=== PATIENT | male | born 1990 | race African-American/Black ===

== ENCOUNTER 2025-05-07 09:43 | Emergency (ER) | payer OTHER, SELFPAY ==
[2025-05-07 09:45] VITALS: BP 132/78; PULSE 102; RESP 20; TEMP 36.6; O2SAT 95; BMI 36.3
--- NOTE | 2025-05-07 09:53 | PC.NURSE ---
called the clinic but no answer at this time
--- NOTE | 2025-05-07 10:58 | PC.NURSE ---
This RN called clinic for a second time at this time, , they did not answer the phone, message left with ED number to return call.
--- NOTE | 2025-05-07 11:16 | ED_ITS ---
HPI - General Adult General Chief complaint: General Medical Stated complaint: med issues Time Seen by Provider: 05/07/25 11:16 History of Present Illness ED Provider: Mayte CORADO narrative: The patient is a 35-year-old male who was on methadone. He usually receives his methadone dose from a clinic in [place]. [facility] name [facility] the [facility]. The patient is currently staying in a [facility] facility in [place]. Apparently his program did not get him to the clinic this morning in time. Apparently his clinic close his early on Thursday. He therefore did not receive his usual dose of 130 mg of methadone today. He came to the emergency room in hopes of getting a dose here. He has no other complaints. Related Data Allergies Allergy/AdvReac Type Severity Reaction Status Date / Time No Known Allergies Allergy Verified 05/07/25 09:48 Review of Systems Review of Systems: Yes all other systems are reviewed and are negative [facility] Social History Social History Advance Directives: No Advance Directives Information Provided: Yes Do you have a plan to hurt others: No Plan Physical Exam ED Vital Signs: Vital Signs - 24 hr 05/07/25 09:45 05/07/25 12:59 Temperature 97.9 F 97.9 F Pulse Rate 102 H 102 H Respiratory Rate 20 20 Blood Pressure 132/78 132/78 Pulse Oximetry 95 95 Oxygen Delivery Method Room Air Room Air BMI result Body Mass Index 36.3 Const Other: The patient is a healthy looking 35-year-old. He is muscular and athletic looking. He does not appear in any distress. Orientation/consciousness: patient oriented x3 HENMT Other: The face is symmetrical. ?Mucous membranes moist. Eyes General: appearance normal, both eyes and all related structures Neck Neck: Yes normal visual inspection and Yes full ROM Resp Effort & Inspection: normal respiratory effort Auscultation: clear to auscultation bilaterally Cardio Rhythm: regular rhythm Heart sounds: S1 normal heart sound present and S2 normal heart sound present GI Other: Abdomen is soft and nontender Skin Other: The skin is dry and unremarkable Neuro General: patient oriented x3, gait normal, tone normal, moves all extremities, no focal motor deficits and CN's II-XI intact bilaterally Extrem Other: There is no calf swelling or tenderness. No asymmetry. No peripheral edema. Medications Administered Discontinued Medications Generic Name Dose Route Start Last Admin Trade Name Freq PRN Reason Stop Dose Admin Methadone HCl 30 mg 05/07/25 12:42 05/07/25 12:53 Methadone Hcl 20 Mg/2 Ml Oral.Conc PO 05/07/25 12:43 30 mg ONCE ONE Administration Medical Decision Making Medical Decision Making MDM Narrative: The patient is a 35-year-old male who was here to get a replacement methadone dose. He is currently staying at a [facility] program which did not get him to his usual methadone clinic in [place] for closing time today on Thursday. He therefore came here. We has been unable to verify his dosing and therefore he was given a compassionate dose of 30 mg. Discharge Plan Discharge Clinical Impression: Methadone use Patient Disposition: Home, Self-Care Additional Instructions: Unfortunately we were unable to confirm your methadone dose today. Our hospital protocol prevents us from giving more than 30 mg of methadone if we are unable to confirm the dose with your regular clinic. You have therefore received 30 mg of methadone today. Please resume your normal clinic dosing tomorrow. Interventions: ED Discharge Assessment Last Done: 05/07/25 12:59 Discharge Date/Time: 05/07/25 12:59 Print Language: Luxembourgish
--- NOTE | 2025-05-07 11:25 | PC.NURSE ---
called [facility] gretel martin to call dept
[2025-05-07] MEDS: methADONE HCl 20 MG/2 ML ORAL.CONC 30 MG PO (12:53)
--- NOTE | 2025-05-07 12:58 | PC.NURSE ---
pt medicated w/30mg of methadone per policy. Last dose letter provided to pt
[2025-05-07 12:59] VITALS: BP 132/78; PULSE 102; RESP 20; TEMP 36.6; O2SAT 95
== END 2025-05-07 12:59 | disposition home or self-care (01) ==
PROVIDERS: Emergency Provider Emergency Medicine; PCP Internal Medicine
DX: F11.10 Opioid abuse, uncomplicated (principal)
CPT/HCPCS: 99282; 99283